=== PATIENT | female | born 1990 | race Caucasian/White ===

== ENCOUNTER 2018-12-09 21:21 | Emergency (ER) | payer SELFPAY ==
[~2018-12-09] VITALS: Ht 157.5 cm; Wt 87.0 kg
[~2018-12-09 21:21] MED LIST: BRITH CONTROL
[2018-12-09 21:53] VITALS: Ht 157.5 cm; Wt 87.0 kg
[2018-12-10] MEDS ORDERED: KETOROLAC 30 MG INJ IM STA (03:03)
[2018-12-10] MEDS ORDERED: ACETAMINOPHEN 325 MG TAB PO ONE (03:30)
[2018-12-10] MEDS ORDERED: D-ME118S24 PO (04:22)
[2018-12-10] MEDS ORDERED: IBUP-1542 PO (04:22)
[2018-12-10] MEDS ORDERED: ACET-141 PO (04:22)
[2018-12-10] MEDS ORDERED: SODI30SP2 NS (04:23)
--- NOTE | 2018-12-10 04:25 | ERD ---
ER Documentation Chief Complaint Chief Complaint fever x3 days w/ STRAUSS/cough/runny nose HPI 28-year-old female presents for fever times 3 days. There is also associated headache, cough, runny nose. Cough noted to be dry. Fever subjective. Patient took NyQuil and Motrin with some relief however the fever returns. Patient denies any significant past medical history. ROS All systems reviewed and are negative except as per history of present illness. Medications Home Meds Active Scripts Sodium Chloride (Saline Nasal [place]) 30 Ml [place], 30 ML NS BID PRN for NASAL CONGESTION for 7 Days, #1 BOTTLE Prov:MIRANDA BEGUM DO 12/10/18 Acetaminophen* (Acetaminophen*) 500 MG Extra Strength Tablet, 500 MG PO Q4H PRN for PAIN AND OR ELEVATED TEMP, #30 TAB Prov:MIRANDA BEGUM DO 12/10/18 Ibuprofen* (Motrin*) 600 Mg Tab, 600 MG PO Q6H PRN for PAIN, #30 TAB Prov:MIRANDA BEGUM DO 12/10/18 D-Methorphan Hb/P-Epd HCl/Bpm (Pevgjfiedg-Yiizmojdttj-Ln Syr) 118 Ml Syrup, 5 ML PO Q4H PRN for COUGH for 10 Days, #1 BOTTLE Prov:MIRANDA BEGUM DO 12/10/18 Reported Medications [Brith Control] No Conflict Check 10/31/10 Allergies Allergies: Coded Allergies: No Known Allergy (Verified , 10/31/10) PMhx/Soc History of Surgery: No Anesthesia Reaction: No Hx Neurological Disorder: No Hx Respiratory Disorders: No Hx Cardiac Disorders: No Hx Psychiatric Problems: No Hx Miscellaneous Medical Probl: No Hx Alcohol Use: No Hx Substance Use: No Hx Tobacco Use: No Physical Exam Vitals Vital Signs Date Temp Pulse Resp B/P (MAP) Pulse Ox O2 O2 Flow FiO2 Time Delivery Rate 12/10/18 100.3 03:16 12/09/18 103.3 119 20 124/78 98 21:53 (93) Physical Exam Const: No acute distress Head: Atraumatic Eyes: Normal Conjunctiva ENT: Normal External Ears, bilateral tympanic membrane intact without erythema or bulging noted, nose and Mouth examination normal, no tonsillar swelling or exudate noted Neck: Full range of motion. No meningismus. Resp: Clear to auscultation bilaterally, no wheezing, rales, rhonchi Cardio: Regular rate and rhythm, no murmurs Skin: No petechiae or rashes Ext: No cyanosis, or edema Neur: Awake and alert Psych: Normal Mood and Affect Results 24 hrs Laboratory Tests Test 12/10/18 03:41 POC Beta HCG, Qualitative NEGATIVE Current Medications Medications Dose Sig/[place] Start Time Status Last (Trade) Ordered Route PRN Stop Time Admin Dose Reason Admin Ketorolac 30 mg ONCE STAT 12/10/18 DC 12/10/18 Tromethamine IM 03:03 12/10/18 03:44 (Toradol) 03:04 650 mg ONCE ONCE 12/10/18 DC 12/10/18 Acetaminophen PO 03:30 12/10/18 03:16 (Tylenol 03:31 Tab) Procedures/MDM Medical Decision Making: Differential diagnosis includes but not limited to upper respiratory infection, pneumonia, sepsis, meningitis, influenza. Patient appeared well on physical examination, nontoxic appearing. Lungs were clear to auscultation bilaterally. There is low suspicion for pneumonia, sepsis, meningitis. Patient likely has an upper respiratory infection, likely viral. Therefore antibiotics not indicated. Discussed symptomatic treatment with patient who agrees with plan. Patient given prescription for supportive medication(s). Patient advised to follow up with PCP in 1-2 days. Patient advised to return to ED for new or worsening symptoms. Patient stable on discharge from the ED. Disclaimer: Inadvertent spelling and grammatical errors are likely due to EHR/dictation software use and do not reflect on the overall quality of patient care. Also, please note that the electronic time recorded on this note does not necessarily reflect the actual time of the patient encounter. Departure Diagnosis: Primary Impression: URI (upper respiratory infection) Condition: Fair Patient Instructions: Preventing Common Respiratory Infections Referrals: [facility] YOU HAVE RECEIVED A MEDICAL SCREENING EXAM AND THE RESULTS INDICATE THAT YOU DO NOT HAVE A CONDITION THAT REQUIRES URGENT TREATMENT IN THE EMERGENCY DEPARTMENT. FURTHER EVALUATION AND TREATMENT OF YOUR CONDITION CAN WAIT UNTIL YOU ARE SEEN IN YOUR DOCTORS OFFICE WITHIN THE NEXT 1-2 DAYS. IT IS YOUR RESPONSIBILITY TO MAKE AN APPOINTMENT FOR FOLOW-UP CARE. IF YOU HAVE A PRIMARY DOCTOR --you should call your primary doctor and schedule an appointment IF YOU DO NOT HAVE A PRIMARY DOCTOR YOU CAN CALL OUR PHYSICIAN REFERRAL HOTLINE AT IF YOU CAN NOT AFFORD TO SEE A PHYSICIAN YOU CAN CHOSE FROM THE FOLLOWING [facility] [address] [facility] [address] [facility] [address] [facility] [address] [facility] [facility] [address] [facility]. [facility] [address] Additional Instructions: Call your primary care doctor TOMORROW for an appointment during the next 1-2 days.See the doctor sooner or return here if your condition worsens before your appointment time. MIRANDA BEGUM DO Dec 10, 2018 04:25
[2018-12-10 04:37] VITALS: BP 126/68; PULSE 80; RESP 18
== END 2018-12-10 04:39 | disposition home or self-care (01) ==
LOC: FTE 21:21
DX: J06.9 Acute upper respiratory infection, unspecified (principal)
CPT/HCPCS: 81025; 96372; 99284; J1885